=== PATIENT | female | born 1955 | race Caucasian/White ===

== ENCOUNTER 2024-01-14 02:10 | Inpatient (IN) | payer MEDICARE, SELFPAY ==
[2024-01-13 18:30] VITALS: BP 152/95
[2024-01-13 18:45] LABS: % Basophils 0.4 % (0-2); % Immature Granulocytes 0.6 % (0-0.5); % Lymphocytes 12.5 % (20.5-51.1); % Monocytes 5.7 % (1.7-9.3); % Neutrophils 80.8 % (42.2-75.2); Absolute Basophils 0.1 10^3/uL (0-0.2); Absolute Immature Granulocytes 0.1 10^3/uL (0-0.05); Absolute Lymphocytes 2.8 10^3/uL (1.2-3.4); Absolute Monocytes 1.3 10^3/uL (0.1-0.6); Absolute Neutrophils 17.7 10^3/uL (1.4-6.5); Hematocrit 39.8 % (37.0-47.0); Hemoglobin 14.2 g/dL (12.0-16.0); Mean Corp Hgb Conc. 35.7 g/dL (33.0-37.0); Mean Corpuscular Volume 86.9 fL (81.0-99.0); Mean Platelet Volume 9.7 fL (7.4-10.4); Nucleated Red Blood Cells % 0 %; Platelet Count 261 10^3/uL (130-400); Red Blood Cell Count 4.58 10^6/uL (4.20-5.40); Red Cell Dist. Width 13.7 % (11.5-14.5)
[2024-01-13 19:25] LABS: ALT (SGPT) 15 U/L (0-35); AST (SGOT) 20 U/L (14-36); Albumin 3.9 g/dl (3.5-5.0); Alkaline Phosphatase 69 U/L (38-126); Blood Urea Nitrogen 19 mg/dl (7-17); Calcium 8.8 mg/dl (8.4-10.2); Carbon Dioxide 26 mmol/L (22-30); Chloride 98 mmol/L (98-107); Glucose 136 mg/dl (70-99); Lipase 213 U/L (23-300); Potassium 4.3 mmol/L (3.5-5.1); Sodium 130 mmol/L (135-145); Total Bilirubin 1.6 mg/dl (0.2-1.3); Total Protein 6.4 g/dl (6.3-8.2); eGFR > 60.00
--- NOTE | 2024-01-13 20:14 | ED.GENMED ---
History of Present Illness
General
Chief Complaint: Abdominal Pain
Source: patient
Exam Limitations: none
Time Seen by Provider: 01/13/24 19:38
History of Present Illness
History of Present Illness:
This is a 68 year old female that comes in with c/o abd pain. State that she started on Saturday night with abd pain. States that it was worse on Saturday. States that she is feeling really weak and she has no appetite. State that she went to work
today but was to weak. States that she has had a headache with lightheadedness. Denies any fever, chills, chest pain, SOB, nausea, vomiting, diarrhea, urinary burning.
Past History
Past History
ED Past Medical History: Arrthythmia (SVT); Negative Asthma, HTN, Hypercholesterolemia or NIDDM
ED Past Surgical History: Cardiac (Ablation)
Social History
Tobacco: Non-smoker
Alcohol: Occasional
Drug: None
Personal:
Living: with family
Employment: Employed
Review of Systems
Review of Systems
All Other Systems: ROS reviewed and negative except as documented in HPI and ROS
Constitutional: Reports no symptoms; Denies fever or chills
EENT: Reports no symptoms
Respiratory: Reports no symptoms; Denies cough or trouble breathing
Cardiac: Reports no symptoms; Denies chest pain
ABD/GI: Reports abdominal pain; Denies nausea, vomiting or diarrhea
: Reports no symptoms; Denies dysuria, frequency or urgency
Musculoskeletal: Reports no symptoms
Skin: Reports no symptoms
Neurological: Reports headache and other (Lightheadedness); Denies dizzy
Psychiatric: Reports no symptoms
Phy Exam
General Physical Exam
General Presentation: no apparent distress (Refused pain medication at this time. )
General age: appears stated age
General Skin: warm and dry
General Habitus: normal
General Mental: alert
General Hydration: appears well hydrated
ENT Exam
ENT Exam: TM's normal, pharynx normal and neck supple
Eye Exam
Eye Exam: EOMI
Cardiovascular Exam
Cardiovascular Exam: regular rate/rhythm, no edema, no murmur and normal peripheral pulses
Pulmonary Exam
Pulmonary Exam: lungs clear, no respiratory distress, no rales, chest non tender, no crackles, no rhonchi, no wheezing and no cough
Gastrointestinal Exam
Gastrointestinal Exam: normal bowel sounds, soft, no organomegaly, no pulsatile mass, non distended and tender (Left sided tenderness with palpation)
Musculoskeletal Exam
Musculoskeletal Exam: full ROM and no edema
Skin Exam
Skin Exam: normal color, warm/dry, no rash and no petechia
Psychiatric Exam
Psychiatric Exam: normal mood/affect
Course
Orders/Labs/Results
Orders:
Orders
01/13/24 18:33
Electrocardiogram (*1) Urgent
Reason for Study: Abdominal Pain
EKG- Treatment ONCE
01/13/24 18:35
Complete Blood Count/With Diff Urgent
Comprehensive Metabolic Panel Urgent
Lipase Urgent
01/13/24 20:16
CT Abd/pel W Iv And Oral Contr Urgent
Comment:
Reason For Exam: left sided abd pain
Iohexol [Omnipaque] See Protocol PO NOW STA
01/13/24 20:17
0.9% Sodium Chloride 1000 ml [Nss] 1,000 ml IV BOLUS
Abnormal Lab Results
01/13/24
18:35
WBC 22.0 H 10^3/uL
(4.8-10.8)
Abs Immat Gran (auto) 0.1 H 10^3/uL
(0-0.05)
Absolute Neuts (auto) 17.7 H 10^3/uL
(1.4-6.5)
Absolute Monos (auto) 1.3 H 10^3/uL
(0.1-0.6)
Immature Gran % 0.6 H %
(0-0.5)
Neutrophils % 80.8 H %
(42.2-75.2)
Lymphocytes % 12.5 L %
(20.5-51.1)
Sodium 130 L mmol/L
(135-145)
BUN 19 H mg/dl
(7-17)
Glucose 136 H mg/dl
(70-99)
Total Bilirubin 1.6 H mg/dl
(0.2-1.3)
01/13/24 18:35
01/13/24 18:35
Leukocytosis, Sodium slightly low. Dehydration. Hyperglycemia, Total angelica slightly elevated. Lipase normal at 213
Vital Signs
Initial and Last Documented VS:
Initial Vital Signs
Temp Pulse Resp BP Pulse Ox
98.7 F 96 18 152/95 97
01/13/24 18:30 01/13/24 18:30 01/13/24 18:30 01/13/24 18:30 01/13/24 18:30
Last Documented Vital Signs
Temp Pulse Resp BP Pulse Ox
99.5 F 95 16 140/75 95
01/13/24 23:17 01/13/24 23:17 01/13/24 23:17 01/13/24 23:17 01/13/24 23:17
MDM/Problems Addressed
Differential Diagnosis Includes:
Diverticulitis, diverticulitis with abscess
MDM/Problems Addressed:
This is a 68 year old female that comes in with c/o left sided abd pain. States that this started on Saturday night and has continued to get worse.
Will get labs, CT scan. IV fluids.
Back into see patient. Explained that by the CT scan she has pancreatitis. With her Leukocytosis and findings on the CT, patient will be admitted. Hospitalist notified.
Chronic conditions affecting care:
NA
Acute Exacerbation and/or Progression of Chronic Illness:
NA
*Radiology
Radiology exam reviewed: radiology read reviewed (CT night hawk-Normal gallbladder. No biliary dilation. Peripancreatic fat stranding and edema. Ill-defined fluid posterior to the pancreatic body extending to the left anterior pararenal space
suggestive of acute pancreatitis. Correlate with pancreatic enzyme levels. Small left renal cyst. ), all reviewed NAD by ED Provider (CT cont- No hydronephrosis or obstructing calculi. No renal stones seen. Partially decompressed urinary bladder is
unremarkable. Small uterine fibroid. Right ovarial cyst measuring 2.6 X 2.8cm. Left ovary is unremarkable. Mild to moderate stool present within the colon. NO evidence of bowel ) and other (CT cont- of bowel obstruction or bowel t+hickening. Normal
appendix. No free fluid or free air. Slightly elevated left hemidiaphragm with mild bibasilar atelectasis, Mild degenerative changes within the spine. )
*Pulse Oximetry
Patient hypoxic: no
*EKG
Interpreted by ED Provider?: NA
Rate: EKG- N/A
*Part Time Receptionist Interpretation
Rate: Part Time Receptionist- N/A
*Critical Care Note
Total Time (30-74mins, 75-104mins- exclusive of procedures): Not Applicable
ED Attending Note
-
Portions of this chart may have been created with voice recognition software.� Occasional wrong word or��sound alike� substitutions may have occurred due to the inherent limitations of voice recognition software.
Discharge Plan
Departure
Patient Disposition: Admit
Date of Disposition: 01/14/24
Time of Disposition: 00:28
Admit to: Med/Surg
Presentation/result/management discussed w/ accepting MD/DO: Hospitalist
Patient with high blood pressure during this ER visit?: Yes
Condition: Good
Covid-19: Not Applicable
Discharge Problem:
Abdominal pain, Acute pancreatitis
Prescriptions:
No Action
alprazolam 0.25 MG tablet
0.25 mg PO PRN PRN (Reason: anxiety)
Referrals:
Sadia Escobar MD [Family Provider] -
Interventions
Interventions:
*Risk Screen - Suicide Last Done: 01/13/24 18:30
*General Assessment Last Done: 01/13/24 18:30
*Neglect/Abuse Screening Last Done: 01/13/24 18:30
ED- Fall Risk Assessment Last Done: 01/14/24 00:19
*ED COVID-19 Vaccine History Last Done: 01/13/24 19:18
XQ-Jixsbr-Nemaqpsyvj Assessment Last Done: 01/13/24 21:06
Discharge Date and Time
Print Language: MONGOLIAN
[2024-01-13 20:16] VITALS: BMI 23.6
[2024-01-13] MEDS: OMNIPAQUE 50 ML PO (20:28)
[2024-01-13] MEDS: NSS 1000 IV (20:29)
[2024-01-13 23:17] VITALS: BP 140/75
[2024-01-14] VITALS (8 sets, daily range): BP systolic 97–126; BP diastolic 63–81; PULSE 68–99; O2SAT 96; BMI 25.1
[2024-01-14] MEDS: TORADOL 30 MG IV (01:04)
--- NOTE | 2024-01-14 02:05 | HPS.HSE ---
Family Physician
-
Family Physician: Sadia Escobar
Chief Complaint
-
Abd Pain
History of Present Illness
Patient is a 68y F with no significant PMH who presents to ED complaining of abdominal pain. Patient states that she developed LUQ abdominal pain on Saturday evening and it has gradually worsened since that time. She states that she has had
very poor appetite, but has not had any nausea or emesis. She has mild L flank discomfort as well. No other radiation of the pain into the chest or lower abdomen. She denies any diarrhea, bloody stool, black stool or urinary complaints. Patient
denies any prior history of similar symptoms.
Patient drinks alcohol occasionally (about 3-4 drinks per week). Her last drink was a glass of wine on Saturday evening.
Patient states that she was bent over doing gardening on Saturday AM and she had severe symptoms of heartburn.
She denies any other recent illness or complaint. She takes no regular prescription medications.
In the ED, patient continues to complain of LUQ discomfort and also developed profuse diaphoresis. She denies lightheadedness / dizziness.
Medical History
Past Medical History
Past Medical History: Reports Other
Additional Past Medical History:
SVT (s/p ablation)
Generalized Anxiety
Past Surgical History: Reports Other
Additional Past Surgical History:
SVT Ablation
Social History
Tobacco: Non-smoker
Alcohol: Occasional
Drug: None
Family History
Family History: Other (Sister: Lung Cancer Father: HTN, CKD)
Allergies / Home Medications
Allergies reflects when Allergies were last updated in [employer]
Home Medications with original date entered in [employer]
Allergy/Medication List:
Allergies
Allergy/AdvReac Type Severity Reaction Status Date / Time
acetaminophen [From Tylenol] Allergy Rash Verified 01/13/24 23:18
amoxicillin [Amoxicillin] Allergy Hives Verified 01/13/24 18:30
Sulfa (Sulfonamide Allergy Rash Verified 01/13/24 23:18
Antibiotics)
Home Medications
alprazolam 0.25 mg tablet 0.25 mg PO PRN PRN anxiety 09/26/11
Review of Systems
-
History Source: Patient
A 12 point ROS was completed and negative except as noted: Yes
Constitutional: Reports Fatigue, Night Sweats and Chills; Denies Fever
EENT: Denies Sore Throat
Respiratory: Denies Cough or Trouble Breathing
Cardiac: Denies Chest Pain or Palpitations
Abdomen/GI: Reports Abdominal Pain and Anorexia; Denies Nausea, Vomiting, Diarrhea, Constipated, Bloody Stools or Black Stools
: Reports Flank Pain; Denies Dysuria or Frequency
Musculoskeletal: Denies Joint Pain or Edema
Neurological: Denies Dizzy or Headache
Psych: Denies Depression or Anxiety
Physical Exam
Vital Signs
Vital Signs
Temp Pulse Resp BP Pulse Ox
99.5 F 86 22 126/81 96
01/13/24 23:17 01/14/24 01:09 01/14/24 01:09 01/14/24 01:09 01/14/24 01:09
Physical Exam
General: Other (68y F in mild / moderate distress due to abdominal pain and diaphoresis.)
HEENT: Moist mucous membranes and PERRLA
Respiratory: Clear; No Wheezes, Rales or Rhonchi
Cardiac: S1/S2 and Regular Rhythm; No Murmur
GI: Soft, Non Distended, Normal Bowel Sounds and Other (Pos epigastric tenderness without rebound / guarding.)
Genito-urinary: No costovertebral tender
Musculoskeletal: No Clubbing, No Cyanosis and No Edema
Neuro: AO x 3
Laboratory Results
-
01/13/24 18:35
01/13/24 18:35
Laboratory Results
Total Bilirubin 1.6 mg/dl (0.2-1.3) H 01/13/24 18:35
AST 20 U/L (14-36) 01/13/24 18:35
ALT 15 U/L (0-35) 01/13/24 18:35
Alkaline Phosphatase 69 U/L (38-126) 01/13/24 18:35
Lipase 213 U/L (23-300) 01/13/24 18:35
Impression/Plan
-
A/P: Patient is a 68y F with no significant PMH who presents to ED complaining of abdominal pain.
Abdominal Pain
Leukocytosis
Questionable Pancreatitis?
- Admit for further evaluation and treatment.
- CT report reviewed with non-specific fluid adjacent to the pancreas. No other significant findings.
- Labs are not consistent with pancreatitis (normal lipase) and patient has no N/V.
- Significant leukocytosis and diaphoresis raise concern for other process here.
- NPO, IVF. Supportive care with pain control, etc.
- Empiric abx with ceftriaxone for now. Follow fever curve, clinical course.
- GI evaluation for additional recommendations.
- Follow for any new / worsening symptoms.
- ? Hematology evaluation if leukocytosis worsens / persists - though no significant adenopathy, etc is appreciated on imaging.
Mild Hyponatremia
- Follow for improvement with IVFs overnight.
History of SVT
- s/p remote ablation. No issues since that time.
- Monitor on tele overnight.
DVT Prophylaxis: SCDs
Code Status: Full
[2024-01-14] MEDS: NSS 1000 IV ×2 (04:56→15:28)
[2024-01-14] MEDS: FLUSH (NSS) 1 FLUSH IV (05:00)
[2024-01-14] MEDS: STERILE WATER FOR INJECTION 10 ML IV (05:06)
[2024-01-14] MEDS: ROCEPHIN 1000 MG IV (05:07)
[2024-01-14 06:53] LABS: Hematocrit 36.2 % (37.0-47.0); Hemoglobin 12.9 g/dL (12.0-16.0); Mean Corp Hgb Conc. 35.6 g/dL (33.0-37.0); Mean Corpuscular Hgb 31.4 pg (27.0-31.0); Mean Corpuscular Volume 88.1 fL (81.0-99.0); Mean Platelet Volume 10.2 fL (7.4-10.4); Platelet Count 256 10^3/uL (130-400); Red Blood Cell Count 4.11 10^6/uL (4.20-5.40); Red Cell Dist. Width 13.6 % (11.5-14.5)
[2024-01-14 08:21] LABS: ALT (SGPT) 14 U/L (0-35); AST (SGOT) 18 U/L (14-36); Albumin 3.1 g/dl (3.5-5.0); Alkaline Phosphatase 66 U/L (38-126); Blood Urea Nitrogen 14 mg/dl (7-17); Calcium 8.4 mg/dl (8.4-10.2); Carbon Dioxide 24 mmol/L (22-30); Chloride 103 mmol/L (98-107); Direct Bilirubin 0.4 mg/dl (0.0-0.4); Estimated Creatinine Clearance 55 ml/min; Glucose 101 mg/dl (70-99); Magnesium 2.1 mg/dl (1.6-2.3); Potassium 4.8 mmol/L (3.5-5.1); Sodium 134 mmol/L (135-145); Total Bilirubin 1.7 mg/dl (0.2-1.3); Total Protein 5.3 g/dl (6.3-8.2); eGFR > 60.00
--- NOTE | 2024-01-14 09:05 | W.PN.UPDATE ---
Update Note
Progress Note Update
Non-billable entry (H&P signed 2 AM)
Abdominal pain of LUQ and epigastrium is improving
no nausea/vomiting, no diarrhea, no fever/chills
no other complaints
Assessment:
LUQ abdominal pain
- CT prelim read as fluid around pancreas, concerning for pancreatitis. await formal read
- lipase negative
- Bili elevated with other LFTs normal
- given ETOH ingestion could also be gastritis, PUD vs other.
- for now continue IVF, NPO
- continue IV PPI
- continue IV Zofran
- await GI input; if no further testing, can trial clears as symptoms seem to be improving
Leukocytosis
- likely stress reaction to current illness
- check UA and Bcx for completeness
- empiric Rocephin pending results
Mild Hyponatremia
- improved with IVF
History of SVT
- s/p remote ablation. No issues since that time.
- Monitor on tele overnight.
DVT Prophylaxis: SCDs
Code Status: Full
[2024-01-14] MEDS: NSS (PRESERVATIVE FREE) 10 ML IV (09:26)
[2024-01-14] MEDS: PROTONIX IV 40 MG IV (09:27)
--- NOTE | 2024-01-14 09:53 | PTOTSP ---
PATIENT ABLE TO FUNCTION INDEPENDENTLY ON LEVEL SURFACES WELL ELEVATIONS REQUIRING NO FURTHER ACUTE CARE SKILLED P.T. ENCOURAGED PATIENT TO CONTINUE AMBULATING IN ROOM TO BATHROOM/HALLS. WILL DISCHARGE FROM P.T. SERVICES.
--- NOTE | 2024-01-14 10:27 | CON.GI ---
Consultation
-
Date/Time Consultation Performed: 01/14/24
Performing Provider: Bandar Milton MD
Reason for Consultation: abdominal pain
Medical History
Chief Complaint / HPI
Chief Complaint: abdominal pain
History of Present Illness:
The patient is a 68-year-old female with past medical history as noted presents with abdominal pain. She describes left upper quadrant pain with some radiation to her flank, starting over the weekend, Saturday night. This is not severe, though has
been associate with some anorexia, though no vomiting or nausea. She has no change in bowel habits, melena or hematochezia. She denies any extraneous NSAIDs. She is never had pain like this before. It is not related to eating or defecation. She
does admit to some alcohol, though at most has small mount of wine during the week, but did have some within the 48 hours prior to her pain starting. She never had an endoscopy or colonoscopy.
Past Medical History
Past Medical History: Other (SVT, status post ablation)
Past Surgical History: Other (Ablation, )
Social History
Tobacco: Non-Smoker
Alcohol: Occasional
Family History
Family History: Reviewed & Not Pertinent
Allergies / Home Medications
Allergy/AdvReac Type Severity Reaction Status Date / Time
acetaminophen [From Tylenol] Allergy Rash Verified 01/13/24 23:18
amoxicillin [Amoxicillin] Allergy Hives Verified 01/13/24 18:30
Sulfa (Sulfonamide Allergy Rash Verified 01/13/24 23:18
Antibiotics)
�Medication �Instructions �Recorded
alprazolam 0.25 mg tablet 0.25 mg PO PRN PRN anxiety 09/26/11
Review of Systems
-
All other systems: A 12 pt ROS was Negative except as stated above in HPI
Vital Signs
Temp Pulse Resp BP Pulse Ox
98.2 F 68 18 98/64 96
01/14/24 07:35 01/14/24 07:35 01/14/24 07:35 07/02/24 07:35 01/14/24 07:35
Physical Exam
Exam
General: NAD
HEENT: MMM, anicteric, no lymphadenopathy
Heart: Regular, no murmurs
Lungs: CTA bilaterally
Abdomen: normal bowel sounds, soft, no tenderness, no rebound or guarding, no masses, bruits or ascites
Extremeties: no edema
Skin: no rashes
Results
WBC 20.0 10^3/uL (4.8-10.8) H 01/14/24 06:40
Hgb 12.9 g/dL (12.0-16.0) 01/14/24 06:40
Hct 36.2 % (37.0-47.0) L 01/14/24 06:40
MCV 88.1 fL (81.0-99.0) 01/14/24 06:40
Plt Count 256 10^3/uL (130-400) 01/14/24 06:40
Absolute Neuts (auto) 17.7 10^3/uL (1.4-6.5) H 01/13/24 18:35
Sodium 134 mmol/L (135-145) L 01/14/24 06:40
Potassium 4.8 mmol/L (3.5-5.1) 01/14/24 06:40
Chloride 103 mmol/L (98-107) 01/14/24 06:40
Carbon Dioxide 24 mmol/L (22-30) 01/14/24 06:40
BUN 14 mg/dl (7-17) 01/14/24 06:40
Creatinine 0.8 mg/dL (0.6-1.0) 01/14/24 06:40
Calcium 8.4 mg/dl (8.4-10.2) 01/14/24 06:40
Total Bilirubin 1.7 mg/dl (0.2-1.3) H 01/14/24 06:40
AST 18 U/L (14-36) 01/14/24 06:40
ALT 14 U/L (0-35) 01/14/24 06:40
Alkaline Phosphatase 66 U/L (38-126) 01/14/24 06:40
Lipase 213 U/L (23-300) 01/13/24 18:35
Diagnostic Image Results:
CT:
IMPRESSION:
1. Abnormal inflammatory process left upper quadrant with inflammatory stranding and small volume of unorganized fluid along the left retroperitoneum as described. Some of the fluid is immediately adjacent the pancreas. There is no abnormally
decreased pancreatic attenuation and there are no abnormal focal pancreatic lesions. Pancreatitis is a differential consideration, the exact etiology is indeterminate on this examination.
2. Approximately 3 cm simple fluid attenuation right adnexal cyst, most likely ovarian cyst. This could be further evaluated with follow-up pelvic ultrasound.
3. Trace left pleural effusion. Subsegmental atelectatic changes bilateral lung bases.
Prior GI Procedures:
EGD:
Colonoscopy:
Assessment / Plan
-
1. Abdominal pain: Most consistent with pancreatitis given the quality of her symptoms, location, as well as CT findings despite normal lipase. Most likely etiology would be secondary to alcohol, with normal LFTs making gallstone mediated
pancreatitis unlikely. Other etiologies including other metabolic or structural abnormalities seem less likely. Other etiologies of her symptoms including peptic ulcer disease, ischemic colitis etc. seem very unlikely. At this point we will check
ultrasound, triglycerides, MRI of the pancreas with and without contrast. Given improvement in symptoms will advance to clear liquid diet, continue IV fluids and observation. There are no markers of severity, though did have mild leukocytosis
which is likely more reactionary. If blood cultures are negative okay to DC antibiotics from GI standpoint.
-
-
Thank you for consultation and allowing me to participate in the patient's care. Please call the cable television installer GI physician during the after hours with any questions or concerns.
[2024-01-14 11:07] LABS: Urine Albumin Trace (Neg - Trace); Urine Bilirubin 1+ (Negative); Urine Character Clear (Clear); Urine Color Yellow; Urine Glucose Negative (Negative); Urine Ketone 2+ (Negative); Urine Leukocyte Negative (Negative); Urine Nitrite Negative (Negative); Urine Occult Blood 1+ (Negative); Urine Specific Gravity 1.015 (<1.030); Urine Urobilinogen 1+ (Neg - 1+)
[2024-01-14 11:32] LABS: Urine Bacteria Few (Negative)
[2024-01-14 11:59] LABS: HDL Cholesterol 52 mg/dl; LDL Cholesterol, Calculated 74 mg/dl; Total Cholesterol 143 mg/dl (50-199); Triglyceride 85 mg/dl (10-149); Very Low Density Lipoprotein 17 mg/dl (0-30)
[2024-01-15] MEDS: NSS 1000 IV (02:09)
[2024-01-15 03:45] VITALS: BP 123/77
[2024-01-15 06:00] VITALS: BMI 25.2
[2024-01-15] MEDS: ROCEPHIN 1000 MG IV (06:08)
[2024-01-15] MEDS: STERILE WATER FOR INJECTION 10 ML IV (06:08)
--- NOTE | 2024-01-15 07:14 | W.PN.GI.CBS2 ---
Today's Communication / Plan
-
Please see assessment and plan for details.
Assessment / Plan
-
1. Abdominal pain: Most consistent with pancreatitis given the quality of her symptoms, location, as well as CT findings despite normal lipase. Most likely etiology would be secondary to alcohol, with normal LFTs making gallstone mediated
pancreatitis unlikely. MRI did show peripancreatic inflammation, as well as anatomy of pancreatic divisum and small pancreatic cyst and no significant mass. There is likely atelectasis also noted on MRI. At this point her symptoms are improving,
will advance diet and if tolerates is okay to DC from a GI standpoint pending her morning labs. Will have her follow-up with Dr. Chambers in 6 weeks, likely plan repeat MRI in 6 weeks after resolution of inflammation to again rule out underlying mass
which again seems less likely. Her pancreatic divisum is unlikely the source of her pancreatitis given her age, more likely related to alcohol despite small amounts and discussed alcohol abstinence moving forward.
Subjective
Subjective
Date of Service: January 15, 2024
Patient feeling better overall, has some mild left upper quadrant/flank pain but overall improved, tolerated liquids without difficulty.
Objective
Data Reviewed
Laboratory Data:
Laboratory Results
Magnesium 2.1 mg/dl (1.6-2.3) 01/14/24 06:40
Total Bilirubin 1.7 mg/dl (0.2-1.3) H 01/14/24 06:40
AST 18 U/L (14-36) 01/14/24 06:40
ALT 14 U/L (0-35) 01/14/24 06:40
Alkaline Phosphatase 66 U/L (38-126) 01/14/24 06:40
Lipase 213 U/L (23-300) 01/13/24 18:35
Vital Signs and I&O:
Vital Signs
Temp Pulse Resp BP Pulse Ox
98.8 F 78 18 123/77 94
01/15/24 03:45 01/15/24 03:45 01/15/24 03:45 01/15/24 03:45 01/15/24 03:45
I&O
01/14/24 01/15/24 01/16/24
06:59 06:59 06:59
Intake Total 0 0 0 / 0
Balance 0 0 2169 / 0
Physical Exam
Physical Exam
General: NAD
Abdomen: normal bowel sounds, soft, no tenderness, no masses or bruits, no ascites
[2024-01-15 07:38] VITALS: BP 124/79
[2024-01-15] MEDS: PROTONIX IV 40 MG IV (08:05)
[2024-01-15] MEDS: NSS (PRESERVATIVE FREE) 10 ML IV (08:05)
[2024-01-15 08:29] LABS: % Basophils 0.3 % (0-2); % Eosinophils 0.6 % (0-6); % Immature Granulocytes 0.3 % (0-0.5); % Lymphocytes 14.1 % (20.5-51.1); % Monocytes 6.8 % (1.7-9.3); % Neutrophils 77.9 % (42.2-75.2); Absolute Basophils 0.1 10^3/uL (0-0.2); Absolute Eosinophils 0.1 10^3/uL (0-0.7); Absolute Neutrophils 11.2 10^3/uL (1.4-6.5); Hematocrit 37.5 % (37.0-47.0); Hemoglobin 12.6 g/dL (12.0-16.0); Mean Corp Hgb Conc. 33.6 g/dL (33.0-37.0); Mean Corpuscular Hgb 30.7 pg (27.0-31.0); Mean Corpuscular Volume 91.2 fL (81.0-99.0); Mean Platelet Volume 10.7 fL (7.4-10.4); Nucleated Red Blood Cells % 0 %; Platelet Count 263 10^3/uL (130-400); Red Blood Cell Count 4.11 10^6/uL (4.20-5.40); Red Cell Dist. Width 13.4 % (11.5-14.5); White Blood Cell Count 14.4 10^3/uL (4.8-10.8)
[2024-01-15 08:52] LABS: ALT (SGPT) 13 U/L (0-35); AST (SGOT) 19 U/L (14-36); Albumin 3.2 g/dl (3.5-5.0); Alkaline Phosphatase 80 U/L (38-126); Blood Urea Nitrogen 11 mg/dl (7-17); Calcium 8.6 mg/dl (8.4-10.2); Carbon Dioxide 19 mmol/L (22-30); Chloride 107 mmol/L (98-107); Estimated Creatinine Clearance 63 ml/min; Glucose 88 mg/dl (70-99); Sodium 136 mmol/L (135-145); Total Bilirubin 1.3 mg/dl (0.2-1.3); Total Protein 5.6 g/dl (6.3-8.2); eGFR > 60.00
[2024-01-15 11:01] VITALS: BP 112/64
[2024-01-15 11:02] VITALS: BP 112/64; BP 117/72; BP 118/68
--- NOTE | 2024-01-15 11:37 | W.PN.HOSP.TC ---
Today's Communication/Plan
-
dc to home today if tolerates LFD
Assessment / Plan
Assessment / Plan
Assessment:
LUQ abdominal pain
- likely ETOH Pancreatitis by symptoms and radiographic evidence of lolis-pancreatic fluid (noted normal Lipase)
- Bili elevated with other LFTs normal
- improving clinically
- DC on LFD if tolerated today
- PPI daily
- prn Zofran
- d/w patient strict ETOH abstinence
- OP F/u GI in 6 weeks for repeat MRI with Dr. Chambers to follow up on pancreatic divisum and small pancreatic cyst
Leukocytosis
- likely stress reaction to current illness
- cultures negative, stop Abx
Mild Hyponatremia
- improved with IVF
History of SVT
- s/p remote ablation. No issues since that time.
- Monitor on tele overnight.
DVT Prophylaxis: SCDs
Code Status: Full
More than 30 minutes spent in discharge including
Final examination of the patient
Summarizing hospital stay
Instructions for continuing care to all relevant caregivers
Preparation of discharge records, prescriptions, and referral forms
Total time spent (in minutes): 42
Anticipated Discharge: Today
Subjective/Interval History
-
Date of Service: January 15, 2024
pain improved, tolerating liquid diet
no n/v/f/c
Objective Data
-
Labs:
Laboratory Results
01/15/24
07:43
WBC 14.4 H
Hgb 12.6
Hct 37.5
Plt Count 263
Sodium 136
Potassium 4.0
Chloride 107
Carbon Dioxide 19 L
BUN 11
Creatinine 0.7
Glucose 88
Calcium 8.6
Total Bilirubin 1.3
AST 19
ALT 13
Alkaline Phosphatase 80
Vital Signs:
Vital Signs
Temp Pulse Resp BP Pulse Ox
98.6 F 72 16 112/64 94
01/15/24 11:01 01/15/24 11:01 01/15/24 11:01 01/15/24 11:01 01/15/24 11:01
I&O
01/14/24 01/15/24 01/16/24
06:59 06:59 06:59
Intake Total 0 / 0 0 217
Balance 0 / 0 0 217
Physical Exam
-
General: No Apparent Distress
HEENT: Normocephalic and Atraumatic
Respiratory: Negative Wheezes or Rales
Cardiac: Regular Rhythm and S1/S2
GI: Soft
Genito-urinary: No Costovertebral Tender
Musculoskeletal: No Edema
Neuro: AO x 3
Hematologic / Lymphatic: No Lymphadenopathy
Psych: Calm
Data Reviewed
-
Total Time Spent with Patient (in minutes): 41
Labs: Labs Reviewed by me
--- NOTE | 2024-01-15 11:49 | W.DS.TRANS ---
DC Summary - Terminal Operations Manager
-
Discharge Instructions:
Discharge Diagnosis/Procedures Alcohol induced pancreatitis
Diet Low Fat
Additional Diets LFD x 1 week then regular diet. No Alcohol
Activity As tolerated
Bathing Restrictions None
Instructions:
Stand-Alone Forms:
Changes to Home Medications: No
Discharge Medications:
DC Medications w/original date entered in [employer]
alprazolam 0.25 mg tablet 0.25 mg PO PRN PRN anxiety 09/26/11
ondansetron 4 mg disintegrating tablet 4 mg PO Q8H PRN nausea and vomiting #20 tabs 01/15/24
pantoprazole 40 mg tablet,delayed release (Protonix) 40 mg PO DAILY #30 tabs 01/15/24
Home Medication Changes
Pending Results: No
Total time spent discharging patient (in min): 42
[2024-01-15] MEDS: MOTRIN 400 MG PO (12:48)
[2024-01-15] MEDS: NSS IV (13:29)
--- NOTE | 2024-01-15 14:03 | CM ---
Chart reviewed and patient visited in her room to complete IA. Aylin lives with her in a 2H with no entry steps via the garage. 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
Her is currently traveling in [place], however patient feels she can return home alone without a problem.
No hx of VN or SNF.
Plan: Discharge to home with no identified needs.
PCP: Sadia Escobar
Pharm: [facility] in [place]
== END 2024-01-15 14:03 | disposition home or self-care (01) | DRG 439 ==
LOC: 4 EAST ACU 02:10
PROVIDERS: Student in an Organized Health Care Education/Training Program; ADMITTING PHYSICIAN Hospitalist; ATTENDING PHYSICIAN Internal Medicine; CONSULT PHYSICIAN Internal Medicine Gastroenterology; EMERGENCY PHYSICIAN Emergency Medicine; FAMILY PHYSICIAN Family Medicine
DX: K85.20 Alcohol induced acute pancreatitis without necrosis or infection (principal); E87.1 Hypo-osmolality and hyponatremia; I47.10 Supraventricular tachycardia, unspecified; K86.2 Cyst of pancreas; Q45.3 Other congenital malformations of pancreas and pancreatic duct; F41.1 Generalized anxiety disorder; D72.829 Elevated white blood cell count, unspecified
CPT/HCPCS: 74177; 74183; 76700; 80048; 80053; 80061; 80076; 81003; 81015; 83690; 83735; 85025; 85027; 87040; 93005; 96374; 96375; 97161; 97166; 99285; A9575; Q9967

== ENCOUNTER → 2024-05-15 19:19 | Outpatient (REF) | payer MEDICARE, SELFPAY | LOC: MRI 3T 19:19 | PROVIDERS: ATTENDING PHYSICIAN Nurse Practitioner; FAMILY PHYSICIAN Family Medicine | DX: K85.90 Acute pancreatitis without necrosis or infection, unspecified (principal) | CPT/HCPCS: 74183; A9575 ==

== ENCOUNTER 2024-08-28 06:18 | Day surgery (SDC) | payer MEDICARE, OTHER, SELFPAY | END 2024-08-28 14:37 | disposition home or self-care (01) | LOC: GI 06:18 | PROVIDERS: ATTENDING PHYSICIAN Internal Medicine | DX: Z12.11 Encounter for screening for malignant neoplasm of colon (principal); D12.0 Benign neoplasm of cecum; D12.2 Benign neoplasm of ascending colon; K57.30 Diverticulosis of large intestine without perforation or abscess without bleeding; K62.1 Rectal polyp; K62.3 Rectal prolapse; Z80.0 Family history of malignant neoplasm of digestive organs | CPT/HCPCS: 45385; 45380; 88305 ==